=== PATIENT | male | born 2000 | race Two or more races ===

== ENCOUNTER 2023-10-26 02:16 | Emergency (ER) | payer OTHER ==
[~2023-10-26] VITALS: Ht 160 cm; Wt 75.3 kg
[2023-10-26] MEDS ORDERED: DEXAMETHASONE SODIUM PHOSPHATE 4 MG/ML VIAL IM STA (04:23)
[2023-10-26] MEDS ORDERED: TETRACAINE HCL 20 DR/ML DROPS OP STA (04:23)
== END 2023-10-26 04:42 | disposition home or self-care (01) ==
LOC: ER 02:17
DX: H53.8 Other visual disturbances (principal)

== ENCOUNTER → 2024-12-06 | Emergency (ER) | payer OTHER ==
[~2024-12-06] VITALS: Ht 165.1 cm; Wt 76.2 kg
[~2024-12-06] MED LIST: DIPHTH,PERTUSS(ACELL),TET VAC 0.5 ML SYRINGE IM ONE; LIDOCAINE HCL 1% 10ML VIAL ONE
== END | disposition home or self-care (01) ==
LOC: ER 20:09
DX: S61.412A Laceration without foreign body of left hand, initial encounter (principal); W45.8XXA Other foreign body or object entering through skin, initial encounter; Y93.89 Activity, other specified; Y92.098 Other place in other non-institutional residence as the place of occurrence of the external cause; Y99.8 Other external cause status